=== PATIENT | male | born 1955 | race Caucasian/White ===

== ENCOUNTER 2020-10-17 11:14 | Emergency (ER) | payer MEDICARE ==
[2020-10-17 11:26] VITALS: TEMP 98.1
[2020-10-17 11:47] LABS: Appearance,Urine Clear (Clear); Bilirubin,Urine Negative (Negative); Blood,Urine Negative (Negative); Color,Urine Colorless; Glucose,Urine (UA) Negative (Negative); Ketones,Urine Negative (Negative); Leukocyte Esterase,Urine Negative (Negative); Nitrite,Urine Negative (Negative); Protein,Urine Negative (Negative); Specific Gravity,Urine 1.004 (1.001-1.035); Urobilinogen,Urine <2.0 mg/dL (<2.0)
--- NOTE | 2020-10-17 13:23 | ED ---
Male Urogenital HPI - General Chief complaint: Urogenital Stated complaint: Trouble Urinating Time Seen by Provider: 10/17/20 12:45 Source: patient Mode of arrival: ambulatory Limitations: no limitations - History of Present Illness Initial comments: 65-year-old male with history of penile cancer presents to emergency department with a chief complaint of obstructive urinary symptoms. Patient reports typically he develops these obstructive urinary symptoms due to having multiple penile surgeries. States the shaft of the penis was removed all the way to the base. States whenever he developed these symptoms, he is usually treated with ciprofloxacin and the obstructive urinary symptoms resolved. He reports dysuria and believes he is at the early stages of developing urinary tract infection. Denies any back pain or pain above the bladder. He does feel like he has a full bladder. Reports incomplete emptying and dribbling. States it is very difficult to have a Bellamy catheter inserted due to the amount of pain because of all the scar tissue developed following the surgery. Patient is only requesting the antibiotics because he could not see his urologist on time. - Related Data Home Medications Medication Instructions Recorded Confirmed Acetaminophen-Codeine 300-30mg 1 tab PO QAM 10/17/20 10/17/20 [Tylenol w/codeine #3] Albuterol Nebulized [Ventolin 2.5 mg INHALATION RT-Q6H 10/17/20 10/17/20 Nebulized] Budesonide [Pulmicort] 1 mg INHALATION RT-BID 10/17/20 10/17/20 Ibuprofen [Motrin] 800 mg PO Q8H PRN 10/17/20 10/17/20 Levothyroxine Sodium [Synthroid] 100 mcg PO DAILY 10/17/20 10/17/20 Simvastatin [Zocor] 20 mg PO DAILY 10/17/20 10/17/20 Terazosin HCl 10 mg PO DAILY 10/17/20 10/17/20 amLODIPine [Norvasc] 5 mg PO DAILY 10/17/20 10/17/20 lisinopriL 30 mg PO DAILY 10/17/20 10/17/20 Previous Rx's Medication Instructions Recorded Ciprofloxacin HCl [Cipro] 500 mg PO Q12HR #20 tablet 10/17/20 Allergies Allergy/AdvReac Type Severity Reaction Status Date / Time No Known Allergies Allergy Verified 10/17/20 13:26 Review of Systems ROS Statement: Those systems with pertinent positive or pertinent negative responses have been documented in the HPI. ROS Other: All systems not noted in ROS Statement are negative. Past Medical History Past Medical History: Asthma, Hyperlipidemia, Hypertension Additional Past Medical History / Comment(s): penis cancer,anysm History of Any Multi-Drug Resistant Organisms: None Reported Past Surgical History: Heart Catheterization Past Psychological History: No Psychological Hx Reported Smoking Status: Current every day smoker Past Alcohol Use History: Occasional Past Drug Use History: None Reported General Exam Limitations: no limitations General appearance: alert, in no apparent distress, obese Head exam: Present: atraumatic, normocephalic, normal inspection Eye exam: Present: normal appearance, PERRL, EOMI Pupils: Present: normal accommodation ENT exam: Present: normal exam, normal oropharynx, mucous membranes moist, TM's normal bilaterally Neck exam: Present: normal inspection, full ROM Respiratory exam: Present: normal lung sounds bilaterally. Absent: respiratory distress Cardiovascular Exam: Present: regular rate, normal rhythm, normal heart sounds GI/Abdominal exam: Present: soft. Absent: distended, tenderness (No suprapubic tenderness), guarding, rebound exam: Absent: normal inspection (Orifice at the base of the penis. There is no shaft. No signs of erythema or any pustular drainage that would suggest infection at this time.) Extremities exam: Present: normal inspection, full ROM, normal capillary refill. Absent: tenderness Back exam: Present: normal inspection, full ROM. Absent: tenderness, CVA tenderness (R), CVA tenderness (L) Neurological exam: Present: alert, oriented X3 Psychiatric exam: Present: normal affect, normal mood Skin exam: Present: warm, dry, intact, normal color Course Vital Signs 10/17/20 10/17/20 10/17/20 11:23 13:00 14:00 Temperature 98.1 F Pulse Rate 69 Respiratory 16 18 18 Rate Blood Pressure 143/80 O2 Sat by Pulse 97 Oximetry 10/17/20 14:09 Temperature 98.1 F Pulse Rate 65 Respiratory 18 Rate Blood Pressure 163/96 O2 Sat by Pulse 98 Oximetry Medical Decision Making - Medical Decision Making 65-year-old male presents to the emergency department with a chief complaint of urinary obstruction. On physical examination, patient has a urethral opening at the base of the penis. The penile shaft has been surgically removed. Patient was able to have some urinary output in the ED. Postvoid scan was 50 mL. Every 8 unremarkable. I offered him imaging and laboratory work, he declined. Patient is only requesting the antibiotic which typically resolves his obstructive urinary symptoms. Patient was given ciprofloxacin 500 mg 10 days. He has an appointment with urology in less than one week. Return parameters discussed the patient was understanding and agreeable. Case discussed with - Lab Data Lab Results 10/17/20 Range/Units 11:38 Urine Color Colorless Urine Appearance Clear (Clear) Urine pH 6.0 (5.0-8.0) Ur Specific Sentinel 1.004 (1.001-1.035) Urine Protein Negative (Negative) Urine Glucose (UA) Negative (Negative) Urine Ketones Negative (Negative) Urine Blood Negative (Negative) Urine Nitrite Negative (Negative) Urine Bilirubin Negative (Negative) Urine Urobilinogen <2.0 (<2.0) mg/dL Ur Leukocyte Esterase Negative (Negative) Disposition Clinical Impression: Lower urinary obstructive symptom Disposition: HOME SELF-CARE Condition: Stable Instructions (If sedation given, give patient instructions): Urinary Retention in Men (ED) Additional Instructions: Follow-up with urology. Return to emergency department if symptoms worsen. Prescriptions: Ciprofloxacin HCl [Cipro] 500 mg PO Q12HR #20 tablet Is patient prescribed a controlled substance at d/c from ED?: No Referrals: Nonstaff,Physician [Primary Care Provider] - 1-2 days Time of Disposition: 14:03
[2020-10-17 14:08] VITALS: RESP 18
[2020-10-17 14:09] VITALS: BP 163/96; PULSE 65
== END 2020-10-17 14:11 | disposition home or self-care (01) ==
LOC: EC 11:14
DX: N13.9 Obstructive and reflux uropathy, unspecified (principal); E78.5 Hyperlipidemia, unspecified; F17.200 Nicotine dependence, unspecified, uncomplicated; I10 Essential (primary) hypertension; J45.909 Unspecified asthma, uncomplicated; Z79.1 Long term (current) use of non-steroidal anti-inflammatories (NSAID); Z79.899 Other long term (current) drug therapy
CPT/HCPCS: 51798; 81003; 99283

== ENCOUNTER 2022-06-01 04:16 | Observation (INO) | payer MEDICARE ==
[2022-06-01] MEDS: APIXABAN 5 MG TAB PO SCH ×2 (11:10→21:27)
[2022-06-01] MEDS ORDERED: ACETAMINOPHEN TAB 325 MG TAB PO PRN (13:24)
[2022-06-01] MEDS ORDERED: NALOXONE 0.4 MG/ML 1 ML VIAL IVP PRN (13:24)
[2022-06-01] MEDS ORDERED: HYDROcodone/APAP 5-325MG 1 EACH TAB PO PRN (13:24)
--- NOTE | 2022-06-01 13:29 | P.HPIM ---
History of Present Illness H&P Date: 06/01/22 History of Presenting Illness: Patient is a very pleasant 66-year-old male with a past medical history of chronic atrial fibrillation on anticoagulation with Eliquis, hypertension, hyperlipidemia, COPD and continued nicotine dependence smoking 1-2 packs of c igarettes daily, AAA status post repair and current AAA reportedly measuring 4.5 cm x 4.5 cm per abdominal duplex completed on 05/31/22 at [facility]. Patient reports he follows up outpatient with vascular surgeon, Dr. Ortega, with [facility] and follows with resin mixer, Dr. Delong, through [facility]. Patient denies having a history of coronary artery disease reports that he was told that he had a heart attack but when he was taken to [facility] and they completed the cardiac cath he told him that the elevation in his troponin was because of his COPD and that he had a clean cardiac cath. Patient's last echocardiogram was completed 12/15/20 at [facility] revealing a EF of 60-65% with mild aortic regurgitation. Patient presented to the emergency department today with a chief complaint of chest pressure. Patient reports he awoke this morning and while sitting up on the side of the bed felt some pressure in his chest, reports it was to midsternal chest and felt more like a discomfort and someone was pushing on him. He states he walked to the restroom and that this pain only lasted a couple minutes and resolved on its own so he disregarded it. Patient states he then went out on the porch to smoke a cigarette and again felt the same pressure to his midsternal chest so he went back into the house. Patient reports this pain/pressure again resolved on its own but returned moments later and this is when he knew he needed to go to the emergency department for evaluation. Patient states pain is currently completely subsided. He describes previous pain as a pressure to midsternal chest and denied any radiation of pain. He states the pain was accompanied by palpitations but denies experiencing any headache, lightheadedness, dizziness, shortness of breath, exertional dyspnea, increases or changes in his chronic COPD cough, nausea, vomiting, or experiencing any numbness/tingling/weakness/swelling in his extremities. Patient underwent full evaluation in the emergency department. EKG was completed revealing atrial fibrillation with a slowed ventricular rate at 58 bpm with no noted T-wave or ST abnormalities showing no signs of acute ischemia. CBC unremarkable and troponin was < 0.012. Patient admitted under our services with consultation to cardiology. Patient did have a reported elevated pressure in the emergency department of 175/110. Review of systems: Pertinent positives and negatives as discussed in HPI, a complete review of systems was performed and all other systems are negative. Physical exam: Vital signs reviewed and stable. General: Nontoxic, no distress and appears stated age. Derm: Skin warm and dry, normal coloration for ethnicity. Head: Atraumatic, normocephalic and symmetric. Eyes: EOMs intact, no lid lag, and anicteric sclera Mouth: no lip lesions, mucus membranes moist Cardiovascular: regular rate and rhythm with normal S1S2, systolic murmur, positive posterior tibial pulses bilaterally, and cap refill < 2 seconds. Lungs: Respirations even, regular, and unlabored on room air. Lungs diminished, no rhonchi, no rales, no wheezing, and no accessory muscle usage. Abdominal: soft, nontender to palpation, no guarding, no appreciable organomegaly Ext: ROM intact. No gross muscle atrophy, bilateral lower extremity nonpitting edema, no contractures Neuro: Speech clear, face symmetrical and CN II-XII grossly intact with no noted focal neuro deficits Psych: Alert and oriented to person, place, time, and situation. Appropriate and pleasant affect. Assessment and Plan of Care: Chest pain, rule out acute coronary event Hypertension Hyperlipidemia -Cardiology consult, appreciate further recommendations -Telemetry monitoring -Trend troponins -Cardiac diet, NPO at midnight -Continue cardiac medication regimen with Aspirin, Eliquis, atorvastatin, lisinopril, and amlodipine -Lipid profile with a.m. labs. -Echocardiogram AAA status post repair and current AAA with aneurysmal sac measuring 4.5 cm x 4.5 cm -Patient reports he follows up outpatient with vascular surgeon, Dr. Ortega, with [facility] system -AAA aneurysmal sac reportedly measuring 4.5 cm x 4.5 cm per abdominal duplex completed on 05/31/22 at [facility]. -Patient to continue to follow up outpatient with his vascular surgeon for continued monitoring and management. COPD with continued nicotine dependence -Recommend smoking cessation. -Nicotine patch. -Continue with daily Pulmicort and as needed DuoNeb for shortness of breath and/or wheezing. The patient is admitted with an anticipated less than 2 midnight stay for evaluation of chest pain CODE STATUS: Full code DVT prophylaxis: Pujaquyaa Discussed with: Patient, cardiology, and RN Anticipated discharge date: Within the next [address]: Home A total of 44 minutes was spent on the care of this complex patient more than 50% of the time was spent in counseling and care coordination. Past Medical History Past Medical History: Asthma, Hyperlipidemia, Hypertension Additional Past Medical History / Comment(s): penis cancer,anysm History of Any Multi-Drug Resistant Organisms: None Reported Past Surgical History: Heart Catheterization Past Psychological History: No Psychological Hx Reported Smoking Status: Current every day smoker Past Alcohol Use History: Occasional Past Drug Use History: None Reported Medications and Allergies Home Medications Medication Instructions Recorded Confirmed Type Acetaminophen-Codeine 300-30mg 1 tab PO QAM 10/17/20 10/17/20 History [Tylenol w/codeine #3] Albuterol Nebulized [Ventolin 2.5 mg INHALATION RT-Q6H 10/17/20 10/17/20 History Nebulized] Budesonide [Pulmicort] 1 mg INHALATION RT-BID 10/17/20 10/17/20 History Ciprofloxacin HCl [Cipro] 500 mg PO Q12HR #20 tablet 10/17/20 Rx Ibuprofen [Motrin] 800 mg PO Q8H PRN 10/17/20 10/17/20 History Levothyroxine Sodium [Synthroid] 100 mcg PO DAILY 10/17/20 10/17/20 History Simvastatin [Zocor] 20 mg PO DAILY 10/17/20 10/17/20 History Terazosin HCl 10 mg PO DAILY 10/17/20 10/17/20 History amLODIPine [Norvasc] 5 mg PO DAILY 10/17/20 10/17/20 History lisinopriL 30 mg PO DAILY 10/17/20 10/17/20 History Allergies Allergy/AdvReac Type Severity Reaction Status Date / Time No Known Allergies Allergy Verified 10/17/20 13:26
--- NOTE | 2022-06-01 13:33 | P.CRDCN ---
History of Present Illness Consult date: 06/01/22 Requesting physician: Samm Corona Reason for Consult (text): chest pain Chief complaint: chest pain History of present illness: This is a pleasant 66-year-old gentleman with a past medical history of hypertension, hyperlipidemia, chronic persistent atrial fibrillation anticoagulated on Eliquis, AAA status post repair follows with Dr. Ortega out of [facility] and underwent duplex there yesterday with an aneurysmal area measuring 4.5 cm x 4.5 cm, COPD currently smokes at least one pack per day has been smoking since the age of 11 and prior to that exposed to heavy secondhand smoke. She also has a history of drinking about every other day, consumes 6 alcoholic beverages in a sitting. He follows with Dr. Delong out of [facility]. She had echocardiogram in November 2020 that showed a normal systolic function with mild aortic regurgitation. He has a history of cardiac catheterization about 9 years ago and at that time was told that he had no obstructive CAD. Presented to the emergency department via EMS with complaints of chest discomfort at home. Discomfort occurred 3 times and was brief lasting only a few seconds. Because it occurred 3 times he decided to call EMS. He has been chest pain-free since admission. The pain did not occur with physical activity. EKG on admission showed atrial fibrillation with heart rate of 58 bpm and incomplete right bundle branch block and nonspecific ST-T wave abnormalities and no previous EKG for comparison. Labs show normal renal function and unremarkable CBC. Troponin has been negative 1. Blood pressure has been elevated initially in the 170s over 110 range and after receiving medications was 160s over 80s. He is currently on lisinopril 30 mg by mouth daily and amlodipine 5 mg by mouth daily. He complains of shortness of breath and uses nebulizers regularly at home but his breathing has been stable. His lower extremity edema that in stable. Denies any palpitations, lightheadedness or dizziness. He denies any orthopnea or PND. He has occasional symptoms of reflux and indigestion has history of a hiatal hernia. Denies any hematuria or GI bleeding. Past Medical History Past Medical History: Asthma, Hyperlipidemia, Hypertension Additional Past Medical History / Comment(s): penis cancer,anysm History of Any Multi-Drug Resistant Organisms: None Reported Past Surgical History: Heart Catheterization Past Psychological History: No Psychological Hx Reported Smoking Status: Current every day smoker Past Alcohol Use History: Occasional Past Drug Use History: None Reported Medications and Allergies Home Medications Medication Instructions Recorded Confirmed Type Acetaminophen-Codeine 300-30mg 1 tab PO QAM 10/17/20 10/17/20 History [Tylenol w/codeine #3] Albuterol Nebulized [Ventolin 2.5 mg INHALATION RT-Q6H 10/17/20 10/17/20 History Nebulized] Budesonide [Pulmicort] 1 mg INHALATION RT-BID 10/17/20 10/17/20 History Ciprofloxacin HCl [Cipro] 500 mg PO Q12HR #20 tablet 10/17/20 Rx Ibuprofen [Motrin] 800 mg PO Q8H PRN 10/17/20 10/17/20 History Levothyroxine Sodium [Synthroid] 100 mcg PO DAILY 10/17/20 10/17/20 History Simvastatin [Zocor] 20 mg PO DAILY 10/17/20 10/17/20 History Terazosin HCl 10 mg PO DAILY 10/17/20 10/17/20 History amLODIPine [Norvasc] 5 mg PO DAILY 10/17/20 10/17/20 History lisinopriL 30 mg PO DAILY 10/17/20 10/17/20 History Allergies Allergy/AdvReac Type Severity Reaction Status Date / Time No Known Allergies Allergy Verified 10/17/20 13:26 Physical Exam Vitals: Intake and Output 05/31/22 06/01/22 06/01/22 22:59 06:59 14:59 Other: # Voids 1 PHYSICAL EXAMINATION: This is a 66-year-old gentleman in no apparent distress at the time of my examination. VITAL SIGNS: Reviewed with nursing staff HEENT: Head is atraumatic, normocephalic. Pupils are equal, round. Sclerae anicteric. Conjunctivae are clear. Mucous membranes of the mouth are moist. Neck is supple. There is no elevated jugular venous pressure. No carotid bruit is heard. CHEST EXAMINATION: Diminished to auscultation bilaterally. No wheezes rales or rhonchi. Respirations even and nonlabored. HEART EXAMINATION: Heart irregular rate and rhythm, positive S1 and S2. No S3. No S4. No clicks, rubs or murmurs. ABDOMEN: Soft, nontender. Bowel sounds are heard. No organomegaly noted. EXTREMITIES: 2+ peripheral pulses with evidence of lower extremity edema right greater than left and no calf tenderness noted. NEUROLOGIC EXAMINATION: Patient is awake, alert and oriented x3. Results Current Medications Generic Name Dose Route Start Last Admin Trade Name Uriel PRN Reason Stop Dose Admin Amlodipine Besylate 10 mg 06/01/22 13:30 Amlodipine 5 Mg Tab PO DAILY [facility] Apixaban 5 mg 06/01/22 11:00 06/01/22 11:10 Apixaban 5 Mg Tab PO 5 mg BID [facility] Administration Protocol Aspirin 81 mg 06/02/22 09:00 Aspirin 81 Mg PO DAILY [facility] Atorvastatin Calcium 10 mg 06/02/22 09:00 Atorvastatin 10 Mg Tab PO DAILY [facility] Budesonide 1 mg 06/01/22 20:00 Budesonide 1 Mg/2 Ml Nebu INHALATION RT-BID [facility] Doxazosin Mesylate 8 mg 06/02/22 21:00 Doxazosin 4 Mg Tab PO HS [facility] Hydrochlorothiazide 25 mg 06/01/22 13:30 Hydrochlorothiazide 25 Mg Tab PO DAILY [facility] Levothyroxine Sodium 100 mcg 06/02/22 06:30 Levothyroxine 100 Mcg Tab PO DAILY@0630 [facility] Lisinopril 30 mg 06/02/22 09:00 Lisinopril 10 Mg Tab PO DAILY [facility] Intake and Output 05/31/22 06/01/22 06/01/22 22:59 06:59 14:59 Other: # Voids 1 Assessment and Plan Assessment: #1 symptoms of chest pain, rule out acute coronary syndrome, troponins negative 1, no evidence of acute ischemia on EKG, no prior EKG to compare #2 chronic persistent atrial fibrillation, anticoagulated and rate controlled 3 hypertension, uncontrolled #4 AAA status post repair follows with Dr. Miller for vascular out of [facility] #5 hyperlipidemia #6 nicotine dependence #7 alcohol abuse 8 COPD Plan: From cardiology's perspective we will add hydrochlorothiazide and increase amlodipine to 10 mg daily. We will continue to trend the troponins. We'll obtain a 2-D echo with Doppler study to assess cardiac structure and function. Discussed in detail importance of smoking and alcohol cessation. Further recommendations to follow depending on diagnostic findings and patient's symptoms. Patient will likely be discharged home and follow-up with his primary industrial spray painter. MAGICIAN HELPER note has been reviewed, I agree with a documented findings and plan of care. Patient was seen and examined.
[2022-06-01] MEDS: hydroCHLOROthiazide 25 MG TAB PO SCH (14:07)
[2022-06-01] MEDS: NICOTINE 21MG/24HR PATCH TRANSDERM SCH (14:07)
[2022-06-01] MEDS: amLODIPine 10 MG TAB PO SCH (14:11)
[2022-06-01] MEDS: IPRATROPIUM-ALBUTEROL 3 ML NEB INHALATION PRN ×2 (15:20→18:58)
[2022-06-01 17:38] LABS: ALT 22 U/L (4-49); AST 24 U/L (17-59); African American GFR (CKD) >90 (>60 ml/min/1.73 sqM); Albumin 4.3 g/dL (3.5-5.0); Albumin/Globulin Ratio 2.4; Alkaline Phosphatase 47 U/L (38-126); Anion Gap 9 mmol/L; Blood Urea Nitrogen 14 mg/dL (9-20); Calcium 8.5 mg/dL (8.4-10.2); Carbon Dioxide 25 mmol/L (22-30); Chloride 104 mmol/L (98-107); Globulin 1.8 g/dL; Glucose 84 mg/dL (74-99); Magnesium 1.6 mg/dL (1.6-2.3); Non-African American GFR(CKD) >90 (>60 ml/min/1.73 sqM); Phosphorus 3.4 mg/dL (2.5-4.5); Potassium 3.9 mmol/L (3.5-5.1); Sodium 138 mmol/L (137-145); Total Protein 6.1 g/dL (6.3-8.2)
[2022-06-01 17:39] LABS: Creatine Kinase 96 U/L (55-170); Creatine Kinase MB 1.6 ng/mL (0.0-2.4); Troponin I <0.012 ng/mL (0.000-0.034)
[2022-06-01 17:44] LABS: Basophils % (A) 1 %; Eosinophils # (A) 0.1 k/uL (0-0.7); Eosinophils % (A) 2 %; HCT 43.2 % (39.0-53.0); HGB 14.7 gm/dL (13.0-17.5); Lymphocytes # (A) 1.3 k/uL (1.0-4.8); Lymphocytes % (A) 27 %; MCH 32.4 pg (25.0-35.0); MCHC 33.9 g/dL (31.0-37.0); MCV 95.6 fL (80.0-100.0); Mean Platelet Volume 8.6; Monocytes # (A) 0.4 k/uL (0-1.0); Monocytes % (A) 8 %; Neutrophils # (A) 2.9 k/uL (1.3-7.7); Neutrophils % (A) 61 %; Platelet Count 178 k/uL (150-450); RBC 4.52 m/uL (4.30-5.90); RDW 12.2 % (11.5-15.5); WBC 4.9 k/uL (3.8-10.6)
[2022-06-01] MEDS: BUDESONIDE 1 MG/2 ML NEBU INHALATION SCH (18:58)
[2022-06-01] MEDS: ATORVASTATIN 10 MG TAB PO SCH (21:33)
[2022-06-01] MEDS ORDERED: guaiFENesin SYRUP 100MG/5ML 200 MG/10 ML CUP PO PRN (22:18)
[2022-06-01] MEDS ORDERED: MELATONIN 5 MG TABLET PO SCH (22:30)
[2022-06-01] MEDS: BENZOCAINE/MENTHOL LOZENG 1 EACH LOZENGE MUCOUS MEM PRN (22:39)
[2022-06-02] MEDS: NICOTINE 21MG/24HR PATCH TRANSDERM SCH (02:29)
[2022-06-02] MEDS ORDERED: LEVOTHYROXINE 100 MCG TAB PO SCH (06:30)
[2022-06-02] MEDS: IPRATROPIUM-ALBUTEROL 3 ML NEB INHALATION PRN ×2 (07:24→11:11)
[2022-06-02] MEDS: BUDESONIDE 1 MG/2 ML NEBU INHALATION SCH (07:24)
[2022-06-02] MEDS ORDERED: PANTOPRAZOLE 40 MG TABLET PO SCH (07:30)
[2022-06-02 08:19] VITALS: BP 133/77; RESP 18; TEMP 98.4
[2022-06-02] MEDS: ATORVASTATIN 10 MG TAB PO SCH (08:22)
[2022-06-02] MEDS: APIXABAN 5 MG TAB PO SCH (08:22)
[2022-06-02] MEDS: hydroCHLOROthiazide 25 MG TAB PO SCH (08:22)
[2022-06-02] MEDS: amLODIPine 10 MG TAB PO SCH (08:22)
[2022-06-02] MEDS ORDERED: lisinopriL 10 MG TAB PO SCH (09:00)
[2022-06-02] MEDS ORDERED: ASPIRIN 81 MG PO SCH (09:00)
[2022-06-02] MEDS ORDERED: ATORVASTATIN 10 MG TAB PO SCH (09:00)
[2022-06-02] MEDS ORDERED: amLODIPine 5 MG TAB PO SCH (09:00)
[2022-06-02] MEDS: BENZOCAINE/MENTHOL LOZENG 1 EACH LOZENGE MUCOUS MEM PRN (10:56)
[2022-06-02 11:14] VITALS: PULSE 80
[2022-06-02 11:25] LABS: HCT 48.5 % (39.6-50.0); MCH 30.9 pg (27.0-32.0); MCV 93.6 fL (80.0-97.0); Mean Platelet Volume 10.8 fL (9.5-12.2); NRBC Per 100 WBC 0 /100 WBCS (0.0-0.0); Platelet Count 206 X 10*3/uL (140-440); RBC 5.18 X 10*6/uL (4.40-5.60); RDW 12.1 % (11.5-14.5); WBC 6.31 X 10*3/uL (4.50-10.00)
[2022-06-02 11:48] LABS: ALT 20 U/L (10-49); AST 19 U/L (14-35); African American GFR (CKD) 107.1 (60.0-200.0); Albumin 4.5 g/dL (3.8-4.9); Albumin/Globulin Ratio 2.81 (1.60-3.17); Alkaline Phosphatase 61 U/L (41-126); Blood Urea Nitrogen 7.6 mg/dL (9.0-27.0); Calcium 9.3 mg/dL (8.7-10.3); Carbon Dioxide 26.2 mmol/L (20.0-27.5); Chloride 102 mmol/L (96-109); Chol/HDL Ratio 2.43 Ratio; Globulin 1.6 g/dL (1.6-3.3); Glucose 90 mg/dL (70-110); LDL Cholesterol,Calculated 65.7 mg/dL (0.0-131.0); Magnesium 1.7 mg/dL (1.5-2.4); Non-African American GFR(CKD) 92.4 (60.0-200.0); Potassium 3.9 mmol/L (3.5-5.5); Sodium 139 mmol/L (135-145); Total Protein 6.1 g/dL (6.2-8.2); VLDL Calculation 17.78 mg/dL (5.00-40.00)
--- NOTE | 2022-06-02 12:58 | P.PN ---
Subjective Progress Note Date: 06/02/22 This is a pleasant 66-year-old gentleman with a past medical history of hypertension, hyperlipidemia, chronic persistent atrial fibrillation anticoagulated on Eliquis, AAA status post repair follows with Dr. Ortega out of [facility] and underwent duplex there yesterday with an aneurysmal area measuring 4.5 cm x 4.5 cm, COPD currently smokes at least one pack per day has been smoking since the age of 11 and prior to that exposed to heavy secondhand smoke. She also has a history of drinking about every other day, consumes 6 alcoholic beverages in a sitting. He follows with Dr. Delong out of [facility]. She had echocardiogram in November 2020 that showed a normal systolic function with mild aortic regurgitation. He has a history of cardiac catheterization about 9 years ago and at that time was told that he had no obstructive CAD. Presented to the emergency department via EMS with complaints of chest discomfort at home. Discomfort occurred 3 times and was brief lasting only a few seconds. Because it occurred 3 times he decided to call EMS. He has been chest pain-free since admission. The pain did not occur with physical activity. EKG on admission showed atrial fibrillation with heart rate of 58 bpm and incomplete right bundle branch block and nonspecific ST-T wave abnormalities and no previous EKG for comparison. Labs show normal renal function and unremarkable CBC. Troponin has been negative 1. Blood pressure has been elevated initially in the 170s over 110 range and after receiving medications was 160s over 80s. He is currently on lisinopril 30 mg by mouth daily and aml odipine 5 mg by mouth daily. He complains of shortness of breath and uses nebulizers regularly at home but his breathing has been stable. His lower extremity edema that in stable. 06/02/2022 Upon examination the patient is sitting up in a chair. He is overall feeling better. Blood pressure is better controlled. He's had no further chest discomfort. Troponins have been negative. Objective - Vital Signs Vital signs: Vital Signs Temp 98.4 F 06/02/22 07:00 Pulse 78 06/02/22 07:40 Resp 18 06/02/22 08:00 BP 133/77 06/02/22 07:00 Pulse Ox 94 L 06/02/22 07:00 FiO2 Intake & Output 06/01/22 06/02/22 06/02/22 19:59 06:59 18:59 Intake Total Balance Intake: Oral Other: Voiding Method Toilet # Voids - Exam HEENT: Head is atraumatic, normocephalic. Pupils are equal, round. Sclerae anicteric. Conjunctivae are clear. Mucous membranes of the mouth are moist. Neck is supple. There is no elevated jugular venous pressure. No carotid bruit is heard. CHEST EXAMINATION: Diminished to auscultation bilaterally. No wheezes rales or rhonchi. Respirations even and nonlabored. HEART EXAMINATION: Heart irregular rate and rhythm, positive S1 and S2. No S3. No S4. No clicks, rubs or murmurs. ABDOMEN: Soft, nontender. Bowel sounds are heard. No organomegaly noted. EXTREMITIES: 2+ peripheral pulses with no evidence of peripheral edema and no calf tenderness noted. NEUROLOGIC EXAMINATION: Patient is awake, alert and oriented x3. - Labs CBC & Chem 7: 06/02/22 06:59 11 06:59 Labs: Abnormal Lab Results - Last 24 Hours (Table) 06/01/22 Range/Units 04:30 Total Protein 6.1 L (6.3-8.2) g/dL Assessment and Plan Assessment: #1 symptoms of chest pain, rule out acute coronary syndrome, troponins negative 1, no evidence of acute ischemia on EKG, no prior EKG to compare #2 chronic persistent atrial fibrillation, anticoagulated and rate controlled 3 hypertension, uncontrolled #4 AAA status post repair follows with Dr. Ortega for vascular out of [facility] #5 hyperlipidemia #6 nicotine dependence #7 alcohol abuse 8 COPD Plan: From cardiology's perspective the patient is stable for discharge home. He will follow-up with his primary foam fabricator in the next week or 2. Encourage smoking and alcohol cessation. COMPETITIVE INTELLIGENCE MANAGER note has been reviewed, I agree with a documented findings and plan of care. Patient was seen and examined.
--- NOTE | 2022-06-02 13:20 | P.DS ---
Providers Date of admission: 06/01/22 05:30 Expected date of discharge: 06/02/22 Attending physician: Samm Corona MD Consults: 06/01/22 13:26 Consult Physician Routine Consulting Provider: [facility] Consult Reason/Comments: Chest Pain Do you want consulting provider notified?: Already Contacted 06/01/22 14:29 Consult Physician Routine Consulting Provider: Amber Pitts Consult Reason/Comments: CHEST PAIN Do you want consulting provider notified?: Already Contacted Placement Type Exists?: Yes Primary care physician: Noemí Hammer MD Hospital Course: Discharge Diagnosis: Chest pain, acute coronary event ruled out Hypertensive urgency, hypertension now stable. Amlodipine was increased to 10 mg daily and patient was started on hydrochlorothiazide. Hyperlipidemia. Patient to continue daily medication regimen with atorvastatin 40 mg nightly. AAA status post repair and current AAA with aneurysmal sac measuring 4.5 cm x 4.5 cm. Patient to continue to follow up outpatient with his vascular surgeon, Dr. Ortega, for continued monitoring and management. COPD with continued nicotine dependence. Recommend smoking cessation. Patient to continue with daily Pulmicort and as needed DuoNeb's for shortness of breath and/or wheezing. Patient also prescribed rescue inhaler Ventolin to be used as needed for shortness of breath and/or wheezing. Hospital Course: Patient is a very pleasant 66-year-old male with a past medical history of chronic atrial fibrillation on anticoagulation with Eliquis, hypertension, hyperlipidemia, COPD and continued nicotine dependence smoking 1-2 packs of cigarettes daily, AAA status post repair and current AAA reportedly measuring 4.5 cm x 4.5 cm per abdominal duplex completed on 05/31/22 at [facility] . Patient reports he follows up outpatient with vascular surgeon, Dr. Ortega, with [facility] and follows with mining support worker, Dr. Delong, through [facility]. Patient denies having a history of coronary artery disease reports that he was told that he had a heart attack but when he was taken to [facility] and they completed the cardiac cath he told him that the elevation in his troponin was because of his COPD and that he had a clean cardiac cath. Patient's last echocardiogram was completed 12/15/20 at [facility] revealing a EF of 60-65% with mild aortic regurgitation. Patient presented to the emergency department today with a chief complaint of chest pressure. Patient reports he awoke this morning and while sitting up on the side of the bed felt some pressure in his chest, reports it was to midsternal chest and felt more like a discomfort and someone was pushing on him. He states he walked to the restroom and that this pain only lasted a couple minutes and resolved on its own so he disregarded it. Patient states he then went out on the porch to smoke a cigarette and again felt the same pressure to his midsternal chest so he went back into the house. Patient reports this pain/pressure again resolved on its own but returned moments later and this is when he knew he needed to go to the emergency department for evaluation. Patient states pain is currently completely subsided. He describes previous pain as a pressure to midsternal chest and denied any radiation of pain. He states the pain was accompanied by palpitations but denies experiencing any headache, lightheadedness, dizziness, shortness of breath, exertional dyspnea, increases or changes in his chronic COPD cough, nausea, vomiting, or experiencing any numbness/tingling/weakness/swelling in his extremities. Patient underwent full evaluation in the emergency department. EKG was completed revealing atrial fibrillation with a slowed ventricular rate at 58 bpm with no noted T-wave or ST abnormalities showing no signs of acute ischemia. CBC unremarkable and troponin was < 0.012. Patient admitted under our services with consultation to cardiology. Patient was admitted under services with consultation to cardiology. Adjustments were made to patient's blood pressure regimen. Norvasc increased to 10 mg daily and patient started on hydrochlorothiazide. Troponins were trended overnight all negative at less than 0.0123 draws. Patient had significant improvement in blood pressure with morning BP of 133/77. He has had no further episodes of chest pain/discomfort since arrival to our facility. Cardiology recommending patient follow up outpatient with his primary mining support worker with [facility] with no further inpatient interventions recommended at this time. Patient is medically stable at this time. Patient counseled on importance of smoking cessation and instructed to follow up outpatient with his PCP, mining support worker, and vascular surgeon. Physical exam: Vital signs reviewed and stable. General: Nontoxic, no distress and appears stated age. Derm: Skin warm and dry, normal coloration for ethnicity. Head: Atraumatic, normocephalic and symmetric. Eyes: EOMs intact, no lid lag, and anicteric sclera Mouth: no lip lesions, mucus membranes moist Cardiovascular: regular rate and rhythm with normal S1S2, systolic murmur, positive posterior tibial pulses bilaterally, and cap refill < 2 seconds. Lungs: Respirations even, regular, and unlabored on room air. Lungs diminished, no rhonchi, no rales, no wheezing, and no accessory muscle usage. Abdominal: soft, nontender to palpation, no guarding, no appreciable organomegaly Ext: ROM intact. No gross muscle atrophy, bilateral lower extremity nonpitting edema, no contractures Neuro: Speech clear, face symmetrical and CN II-XII grossly intact with no noted focal neuro deficits Psych: Alert and oriented to person, place, time, and situation. Appropriate and pleasant affect. A total of 33 minutes of time were spent preparing this complex discharge summary. Pt was discharged on 06/02/22 at 1:14 PM. I reviewed the documentation as provided by the HAI above, who is the original author of this note. I agree with the documented assessment and plan, with the following changes: none Patient Condition at Discharge: Stable Plan - Discharge Summary New Discharge Prescriptions: New Albuterol Sulfate [Ventolin HFA] 2 puff INHALATION Q6H PRN #1 each PRN Reason: Shortness Of Breath Or Wheezing hydroCHLOROthiazide [Hydrodiuril] 25 mg PO DAILY 30 Days #60 tab amLODIPine [Norvasc] 10 mg PO DAILY 30 Days #30 tab Continue Levothyroxine Sodium [Synthroid] 100 mcg PO DAILY Budesonide [Pulmicort] 1 mg INHALATION RT-HS lisinopriL [Zestril] 40 mg PO DAILY Omeprazole 20 mg PO DAILY Atorvastatin [Lipitor] 40 mg PO HS Albuterol Inhaler [Ventolin Hfa Inhaler] 2 puff INHALATION RT-Q6H PRN PRN Reason: Shortness Of Breath Acetaminophen-Codeine 300-30mg [Tylenol w/codeine #3] 1 tab PO DAILY Terazosin HCl 10 mg PO HS Mupirocin Calcium 2% Cream [Bactroban 2% Cream] 1 applic TOPICAL BID PRN PRN Reason: Skin Irritation Cranberry Fruit Extract [Cranberry] 500 mg PO DAILY Albuterol Nebulized [Ventolin Nebulized] 2.5 mg INHALATION RT-Q6H PRN PRN Reason: Shortness Of Breath Apixaban [Eliquis] 5 mg PO BID Discontinued amLODIPine [Norvasc] 5 mg PO DAILY Discharge Medication List Acetaminophen-Codeine 300-30mg [Tylenol w/codeine #3] 1 tab PO DAILY 10/17/20 [History] Budesonide [Pulmicort] 1 mg INHALATION RT-HS 10/17/20 [History] Levothyroxine Sodium [Synthroid] 100 mcg PO DAILY 10/17/20 [History] Terazosin HCl 10 mg PO HS 10/17/20 [History] Albuterol Inhaler [Ventolin Hfa Inhaler] 2 puff INHALATION RT-Q6H PRN 06/01/22 [History] Albuterol Nebulized [Ventolin Nebulized] 2.5 mg INHALATION RT-Q6H PRN 06/01/22 [History] Atorvastatin [Lipitor] 40 mg PO HS 06/01/22 [History] Cranberry Fruit Extract [Cranberry] 500 mg PO DAILY 06/01/22 [History] Mupirocin Calcium 2% Cream [Bactroban 2% Cream] 1 applic TOPICAL BID PRN 06/01/22 [History] Omeprazole 20 mg PO DAILY 06/01/22 [History] lisinopriL [Zestril] 40 mg PO DAILY 06/01/22 [History] Albuterol Sulfate [Ventolin HFA] 2 puff INHALATION Q6H PRN #1 each 06/02/22 [Rx] Apixaban [Eliquis] 5 mg PO BID 06/02/22 [History] amLODIPine [Norvasc] 10 mg PO DAILY 30 Days #30 tab 06/02/22 [Rx] hydroCHLOROthiazide [Hydrodiuril] 25 mg PO DAILY 30 Days #60 tab 06/02/22 [Rx] Patient Instructions/Handouts: Chest Pain (DC), Hypertension (DC) Activity/Diet/Wound Care/Special Instructions: Activity: As tolerated. Take breaks as needed. Diet: Heart healthy and carb consistent diet. Avoid salts, or foods with hidden salts such as canned or boxed foods and frozen dinners. Extra salt makes your heart work harder and traps the fluid in your body for longer. Special Instructions: Take all of your medications as directed and remember to keep all of your doctor's appointments and follow-up as needed. It is recommended he follow-up outpatient with your mining support worker, Dr. Robles in one week for follow up and outpatient echocardiogram. Return to ER if experience any further episodes of chest pain. Follow up with Dr. Ortega your vascular surgeon at [facility] for continued monitoring and management of AAA. Recommend smoking cessation. Thank you for allowing us to participate in your care, it was truly a pleasure having you for our patient!!! Discharge Disposition: HOME SELF-CARE
[2022-06-02] MEDS ORDERED: DOXAZOSIN 4 MG TAB PO SCH (21:00)
--- NOTE | 2022-06-03 14:12 | XR ---
EXAM: XR Chest, 1 View CLINICAL HISTORY: Chest pain TECHNIQUE: Frontal view of the chest. COMPARISON: No relevant prior studies available. FINDINGS: Lungs: Unremarkable. No consolidation. Pleural space: Unremarkable. No pneumothorax. Heart: Mild cardiomegaly. Pulmonary vascular congestion. Mediastinum: Unremarkable. Bones/joints: Unremarkable. IMPRESSION: Mild cardiomegaly with pulmonary vascular congestion consistent with congestive heart failure.
== END 2022-06-02 13:20 | disposition home or self-care (01) ==
LOC: EC 04:16 → 6NMEDSUR 05:30
PROVIDERS: ADMIT Internal Medicine; ATTEND Internal Medicine
DX: R07.89 Other chest pain (principal); I16.0 Hypertensive urgency; I71.40 Abdominal aortic aneurysm, without rupture, unspecified; J44.9 Chronic obstructive pulmonary disease, unspecified; E78.5 Hyperlipidemia, unspecified; F17.210 Nicotine dependence, cigarettes, uncomplicated; I45.10 Unspecified right bundle-branch block; I11.9 Hypertensive heart disease without heart failure; F10.10 Alcohol abuse, uncomplicated; I48.19 Other persistent atrial fibrillation; Z79.01 Long term (current) use of anticoagulants; Z86.79 Personal history of other diseases of the circulatory system; Z85.49 Personal history of malignant neoplasm of other male genital organs; Z79.890 Hormone replacement therapy; Z79.899 Other long term (current) drug therapy
CPT/HCPCS: 99285; 94640 ×5; 80061; 80053 ×2; 82550; 82553; 83735 ×2; 84100; 84484; 85025; 85027; 71046; G0378 ×2; S4990 ×2

== ENCOUNTER 2023-02-25 14:04 | Emergency (ER) | payer MEDICARE ==
[2023-02-25 14:34] VITALS: PULSE 86; RESP 20; TEMP 98.3
--- NOTE | 2023-02-25 14:49 | ED ---
Male Urogenital HPI - General Source: patient, RN notes reviewed Mode of arrival: ambulatory Limitations: no limitations <Kelle Mohan - Last Filed: 02/25/23 14:45> <René Garcia - Last Filed: 02/25/23 17:00> - General Chief complaint: Urogenital Stated complaint: Cant Urinate Time Seen by Provider: 02/25/23 14:45 - History of Present Illness Initial comments: This is a 67-year-old male who presents to the emergency department for urinary retention. Patient states that over the last 6 hours, he has been unable to urinate. He has a history of penile cancer requiring penile shaft removal. He has mild abdominal discomfort. He was evaluated here in August of this year for the same problem and was found to have urinary strictures. (Kelle Mohan) This is a 67-year-old male who had penile cancer approximate 10 years ago and comes in today because he has been unable to urinate for the last 6 hours. Patient states that he put a catheter many times in the past. Patient states she supposed be having another surgery so they doesn't continue to have this problem. Patient denies any fever chills per patient states he has a urinary tract infections in the past. Patient states she's been told he said urethral strictures. Patient denies any back pain. Patient denies any kidney dysfunction. Patient states he just started not able to urinate about 6 hours ago and has continued to this moment. (René Garcia) - Related Data Home Medications Medication Instructions Recorded Confirmed Acetaminophen-Codeine 300-30mg 1 tab PO TID PRN 10/17/20 09/05/22 [Tylenol w/codeine #3] Budesonide [Pulmicort] 1 mg INHALATION RT-BID PRN 10/17/20 09/05/22 Levothyroxine Sodium [Synthroid] 100 mcg PO DAILY 10/17/20 09/05/22 Terazosin HCl 10 mg PO HS 10/17/20 09/05/22 Albuterol Inhaler [Ventolin Hfa 2 puff INHALATION RT-Q6H PRN 06/01/22 09/05/22 Inhaler] Albuterol Nebulized [Ventolin 2.5 mg INHALATION RT-Q6H PRN 06/01/22 09/05/22 Nebulized] Atorvastatin [Lipitor] 40 mg PO HS 06/01/22 09/05/22 Cranberry Fruit Extract [Cranberry] 500 mg PO DAILY 06/01/22 09/05/22 Omeprazole 20 mg PO DAILY 06/01/22 09/05/22 lisinopriL [Zestril] 40 mg PO DAILY 06/01/22 09/05/22 Apixaban [Eliquis] 5 mg PO BID 06/02/22 09/05/22 Previous Rx's Medication Instructions Recorded amLODIPine [Norvasc] 10 mg PO DAILY 30 Days #30 tab 06/02/22 Ciprofloxacin HCl [Cipro] 500 mg PO Q12HR #10 tablet 09/05/22 Sulfamethox-Tmp 800-160Mg [Bactrim 1 each PO Q12HR #20 tab 02/25/23 DS 800-160 mg] Allergies Allergy/AdvReac Type Severity Reaction Status Date / Time No Known Allergies Allergy Verified 02/25/23 14:34 Review of Systems ROS Other: All systems not noted in ROS Statement are negative. <Kelle Mohan - Last Filed: 02/25/23 14:45> ROS Other: All systems not noted in ROS Statement are negative. <René Garcia - Last Filed: 02/25/23 17:00> ROS Statement: Those systems with pertinent positive or pertinent negative responses have been documented in the HPI. Past Medical History Past Medical History: Asthma, Hyperlipidemia, Hypertension Additional Past Medical History / Comment(s): penis cancer,aneurysm History of Any Multi-Drug Resistant Organisms: None Reported Past Surgical History: Heart Catheterization Past Psychological History: No Psychological Hx Reported Smoking Status: Current every day smoker Past Alcohol Use History: Occasional Past Drug Use History: None Reported <Kelle Mohan - Last Filed: 02/25/23 14:45> General Exam Limitations: no limitations <Kelle Mohan - Last Filed: 02/25/23 14:45> <René Garcia - Last Filed: 02/25/23 17:00> - General Exam Comments Initial Comments: Visual Physical Exam Vital signs reviewed General: Well-appearing, nontoxic, no acute distress. Head: Normocephalic, atraumatic Eyes: PERRLA, EOMI ENT: Airway patent Chest: Nonlabored breathing Skin: No visual rash, normal skin tone Neuro: Alert and oriented 3 Musculoskeletal: No gross abnormalities (Kelle Mohan) GENERAL Patient is well-developed and well-nourished. Patient is in mild distress. EYES Patient's pupils are equal and round. Extraocular motion is intact SKIN Unremarkable GENITALIA Patient has no penile shaft. NEURO The patient is alert and oriented 3 PYSCH Patient has normal interpersonal interactions. MUSCULOSKELETAL All 4 extremities have full range of motion (René Garcia) Course Vital Signs 02/25/23 14:28 Temperature 98.3 F Pulse Rate 86 Respiratory 20 Rate Blood Pressure 157/89 O2 Sat by Pulse 95 Oximetry Medical Decision Making <Kelle Mohan - Last Filed: 02/25/23 14:45> <René Garcia - Last Filed: 02/25/23 17:00> - Medical Decision Making I performed the QuickNote portion of this chart. Signed Kelle Mohan PA-C. (Kelle Mohan) Was pt. sent in by a medical professional or institution ([facility], EMBEDDED SOFTWARE ARCHITECT, urgent care, hospital, or residential...) When possible be specific @ -No Did you speak to anyone other than the patient for history (EMS, parent, family, police, friend...)? What history was obtained from this source @ -No Did you review nursing and triage notes (agree or disagree)? Why? @ -I reviewed and agree with nursing and triage notes Were old charts reviewed (outside hosp., previous admission, EMS record, old EKG, old radiological studies, urgent care reports/EKG's, residential records)? Report findings @ -No old charts were reviewed Differential Diagnosis (chest pain, altered mental status, abdominal pain women, abdominal pain men, vaginal bleeding, weakness, fever, dyspnea, syncope, headache, dizziness, GI bleed, back pain, seizure, CVA, palpatations, mental health, musculoskeletal)? @ -Urinary retention, urinary tract infection, urethral stricture, this is not all inclusive list EKG interpreted by me (3pts min.). @ -As above X-rays interpreted by me (1pt min.). @ -None done CT interpreted by me (1pt min.). @ -None done U/S interpreted by me (1pt. min.). @ -None done What testing was considered but not performed or refused? (CT, X-rays, U/S, labs)? Why? @ -None What meds were considered but not given or refused? Why? @ -None Did you discuss the management of the patient with other professionals (professionals i.e. , PA, EMBEDDED SOFTWARE ARCHITECT, lab, RT, psych nurse, director social service, dispatcher clerk, teacher, chief commercial officer, casey saw operator)? Give summary @ -No Was smoking cessation discussed for >3mins.? @ -No Was critical care preformed (if so, how long)? @ -No Were there social determinants of health that impacted care today? How? (Homelessness, low income, unemployed, alcoholism, drug addiction, transportation, low edu. Level, literacy, decrease access to med. care, intermediate, rehab)? @ -No Was there de-escalation of care discussed even if they declined (Discuss DNR or withdrawal of care, Hospice)? DNR status @ -No What co-morbidities impacted this encounter? (DM, HTN, Smoking, COPD, CAD, Cancer, CVA, ARF, Chemo, Hep., AIDS, mental health diagnosis, sleep apnea, morbid obesity)? @ -None Was patient admitted / discharged? Hospital course, mention meds given and route, prescriptions, significant lab abnormalities, going to OR and other pertinent info. @ -Patient had a catheter placed and it did drain urine and the patient was feeling much better. Urine showed urinary tract infection patient was given an IM shot of Rocephin and sent home on antibiotics. Undiagnosed new problem with uncertain prognosis? @ -No Drug Therapy requiring intensive monitoring for toxicity (Heparin, Nitro, Insulin, Cardizem)? @ -No Were any procedures done? @ -No Diagnosis/symptom? @ -Urinary retention Acute, or Chronic, or Acute on Chronic? @ -Acute Uncomplicated (without systemic symptoms) or Complicated (systemic symptoms)? @ -Uncomplicated Side effects of treatment? @ -No Exacerbation, Progression, or Severe Exacerbation? @ -No Poses a threat to life or bodily function? How? (Chest pain, USA, CT, pneumonia, PE, COPD, DKA, ARF, appy, cholecystitis, CVA, Diverticulitis, Homicidal, Suicidal, threat to staff... and all critical care pts) @ -No Diagnosis/symptom? @ -Urinary tract infection Acute, or Chronic, or Acute on Chronic? @ -Acute Uncomplicated (without systemic symptoms) or Complicated (systemic symptoms)? @ -Complicated Side effects of treatment? @ -none Exacerbation, Progression, or Severe Exacerbation] @ -no Poses a threat to life or bodily function? @ -no (René Garcia) - Lab Data Lab Results 02/25/23 Range/Units 16:12 Urine Color Light Red Urine Appearance Turbid (Clear) Urine pH 6.0 (5.0-8.0) Ur Specific [place] 1.021 (1.001-1.035) Urine Protein 1+ H (Negative) Urine Glucose (UA) Negative (Negative) Urine Ketones Negative (Negative) Urine Blood Large H (Negative) Urine Nitrite Positive (Negative) Urine Bilirubin Negative (Negative) Urine Urobilinogen 2.0 (<2.0) mg/dL Ur Leukocyte Esterase Large H (Negative) Urine RBC 20 H (0-5) /hpf Urine WBC 100 H (0-5) /hpf Ur Squamous Epith Cells 2 (0-4) /hpf Urine Bacteria Moderate H (None) /hpf Disposition <Kelle Mohan - Last Filed: 02/25/23 14:45> Is patient prescribed a controlled substance at d/c from ED?: No Time of Disposition: 16:59 <René Garcia - Last Filed: 02/25/23 17:00> Clinical Impression: Urinary tract infection, Urinary retention Disposition: HOME SELF-CARE Condition: Good Instructions (If sedation given, give patient instructions): Urinary Tract Infection in Men (ED), Urinary Retention in Men (ED) Prescriptions: Sulfamethox-Tmp 800-160Mg [Bactrim DS 800-160 mg] 1 each PO Q12HR #20 tab Referrals: Huey Hammer MD [REFERRING] - 1-2 days
[2023-02-25] MEDS ORDERED: LIDOCAINE 2% URO-JET JELLY 5 ML KIT URETHRAL ONE (15:27)
[2023-02-25 16:36] LABS: Appearance,Urine Turbid (Clear); Bilirubin,Urine Negative (Negative); Blood,Urine Large (Negative); Color,Urine Light Red; Glucose,Urine (UA) Negative (Negative); Ketones,Urine Negative (Negative); Leukocyte Esterase,Urine Large (Negative); Nitrite,Urine Positive (Negative); Protein,Urine 1+ (Negative); Specific Gravity,Urine 1.021 (1.001-1.035)
[2023-02-25 16:38] LABS: RBC,Urine 20 /hpf (0-5); WBC,Urine 100 /hpf (0-5)
[2023-02-25 16:39] LABS: Bacteria,Urine Moderate /hpf; Squamous Epithelial Cell,Urine 2 /hpf (0-4)
[2023-02-25] MEDS ORDERED: cefTRIAXone 1,000 MG VIAL (IM USE) IM STA (16:53)
[2023-02-25 17:20] VITALS: BP 148/91
== END 2023-02-25 17:20 | disposition home or self-care (01) ==
LOC: EC 14:04
DX: N39.0 Urinary tract infection, site not specified (principal); R33.9 Retention of urine, unspecified; B96.89 Other specified bacterial agents as the cause of diseases classified elsewhere; I10 Essential (primary) hypertension; J45.909 Unspecified asthma, uncomplicated; E78.5 Hyperlipidemia, unspecified; F17.200 Nicotine dependence, unspecified, uncomplicated; Z79.01 Long term (current) use of anticoagulants; Z79.51 Long term (current) use of inhaled steroids; Z79.899 Other long term (current) drug therapy
CPT/HCPCS: 81001; 87086; 87077; 87186; 99283; 96372; 51701; J0696

== ENCOUNTER → 2023-12-12 | Outpatient (CLI) | payer MEDICARE ==
[2023-12-12 10:19] LABS: Basophils # (A) 0.04 X 10*3/uL (0.00-0.10); Basophils % (A) 0.8 %; Eosinophils # (A) 0.15 X 10*3/uL (0.04-0.35); Eosinophils % (A) 3.1 %; HGB 12.3 g/dL (13.0-17.0); Lymphocytes # (A) 0.94 X 10*3/uL (0.90-5.00); Lymphocytes % (A) 19.5 %; MCHC 31.5 g/dL (32.0-37.0); MCV 88.8 FL (80.0-97.0); Mean Platelet Volume 10.2 FL (9.5-12.2); Monocytes # (A) 0.44 X 10*3/uL (0.20-1.00); Monocytes % (A) 9.1 %; NRBC Per 100 WBC 0 X 10*3/uL (0.00-0.01); Neutrophils # (A) 3.23 X 10*3/uL (1.80-7.70); Neutrophils % (A) 67.3 %; Platelet Count 191 X 10*3/uL (140-440); RBC 4.39 X 10*6/uL (4.40-5.60); RDW 14.9 % (11.5-14.5); WBC 4.81 X 10*3/uL (4.50-10.00)
[2023-12-12 10:59] LABS: ALT 6 U/L (10-49); AST 22 U/L (14-35); Albumin 4.5 g/dL (3.8-4.9); Alkaline Phosphatase 59 U/L (41-126); BUN/Creat Ratio 17.86 Ratio (12.00-20.00); Blood Urea Nitrogen 12.5 mg/dL (9.0-27.0); Calcium 9.3 mg/dL (8.7-10.3); Carbon Dioxide 25.5 mmol/L (21.6-31.8); Chloride 106 mmol/L (96-109); Chol/HDL Ratio 1.67 Ratio; Globulin 1.5 g/dL (1.6-3.3); Glucose 82 mg/dL (70-110); LDL Cholesterol,Calculated 50.4 mg/dL (0.0-131.0); Potassium 4.1 mmol/L (3.5-5.5); Sodium 145 mmol/L (135-145); T4, Free (Free Thyroxine) 1.48 ng/dL (0.80-1.80); Total Bilirubin 0.9 mg/dL (0.3-1.2); VLDL Calculation 7.58 mg/dL (5.00-40.00)
== END | disposition home or self-care (01) ==
LOC: LABWHC1 07:03
PROVIDERS: ATTEND Family Medicine
DX: Z12.5 Encounter for screening for malignant neoplasm of prostate (principal); E78.5 Hyperlipidemia, unspecified; E03.9 Hypothyroidism, unspecified; E55.9 Vitamin D deficiency, unspecified
CPT/HCPCS: 84439; 84481; 80061; 80053; 84443; 85025; 82306; 36415; G0103

== ENCOUNTER → 2024-04-01 | Outpatient (CLI) | payer MEDICARE ==
[2024-04-01 15:42] LABS: Basophils # (A) 0.04 X 10*3/uL (0.00-0.10); Basophils % (A) 0.8 %; Eosinophils # (A) 0.12 X 10*3/uL (0.04-0.35); Eosinophils % (A) 2.3 %; HCT 44.6 % (39.6-50.0); HGB 14.1 g/dL (13.0-17.0); Lymphocytes # (A) 0.53 X 10*3/uL (0.90-5.00); Lymphocytes % (A) 10.2 %; MCH 29.6 pg (27.0-32.0); MCHC 31.6 g/dL (32.0-37.0); MCV 93.7 FL (80.0-97.0); Mean Platelet Volume 10.5 FL (9.5-12.2); Monocytes # (A) 0.49 X 10*3/uL (0.20-1.00); Monocytes % (A) 9.4 %; NRBC Per 100 WBC 0 X 10*3/uL (0.00-0.01); Neutrophils # (A) 4.01 X 10*3/uL (1.80-7.70); Neutrophils % (A) 77.1 %; Platelet Count 209 X 10*3/uL (140-440); RBC 4.76 X 10*6/uL (4.40-5.60); RDW 16.5 % (11.5-14.5)
[2024-04-01 17:41] LABS: % Iron Saturation 54.11 (15.00-50.00); Ferritin 40.9 ng/mL (22.0-322.0)
== END | disposition home or self-care (01) ==
LOC: LABWHC1 07:30
PROVIDERS: ATTEND Family Medicine
DX: D64.9 Anemia, unspecified (principal)
CPT/HCPCS: 36415; 82607; 82728; 82747; 83540; 83550; 85025

== ENCOUNTER → 2024-09-21 | Outpatient (CLI) | payer MEDICARE | END | disposition home or self-care (01) | LOC: LABWHC1 08:33 | PROVIDERS: ATTEND Psychiatry & Neurology Neurology | DX: G20.A1 Parkinson's disease without dyskinesia, without mention of fluctuations (principal); G62.9 Polyneuropathy, unspecified; Z79.899 Other long term (current) drug therapy | CPT/HCPCS: 36415; 82306; 82607; 83036; 84165 ==

== ENCOUNTER → 2024-10-08 | Outpatient (CLI) | payer MEDICARE ==
--- NOTE | 2024-10-08 15:58 | MR ---
EXAMINATION TYPE: MR brain wo/w con DATE OF EXAM: 10/08/2024 3:42 PM COMPARISON: None. CLINICAL INDICATION: Male, 69 years old with history of R41.3 AMNESIA G20.A1 PARKINSON'S DIS; Quique CARVAJAL 2 years ago TECHNIQUE: Multi planar, multi sequence imaging was performed through the brain including: T1, T2, In version recovery, susceptibility weighted imaging and gradient echo imaging and Diffusion weighted im aging. The patient was then given intravenous contrast and multi planar, T1 fat-saturation images wer e obtained. IV Contrast: 9ml mL Gadobutrol FINDINGS: Mild cerebral atrophy with proportional dilation of ventricular system. Diffusion-weighted imaging s hows no evidence of restricted diffusion to suggest acute/subacute infarct. Intracranial arterial ashanti w voids are maintained. Midline structures show no abnormality. Scattered foci of high T2 signal inte nsity are seen within the periventricular white matter. The susceptibility weighted images do not rev eal any evidence for micro-hemorrhage. After administration of gadolinium, no abnormal enhancement is seen. There are 2 thin-walled cysts the posterior nasopharynx in the adenoids measuring up to 14 mm. The bone marrow signal is within normal limits. Paranasal sinuses and mastoid air cells: No significant paranasal sinus disease. Visualized orbits: Bilateral aphakia IMPRESSION: 1. No evidence of intracranial mass, acute/subacute infarct, or abnormal enhancement. 2. Nonspecific white matter changes, likely related to small vessel ischemic disease. 3. 2 mucous retention cysts of the adenoids and the posterior nasopharynx [facility], , 10/08/2024 3:56 PM
== END | disposition home or self-care (01) ==
LOC: RADMRIMAIN 14:51
PROVIDERS: ATTEND Psychiatry & Neurology Neurology
DX: G20.A1 Parkinson's disease without dyskinesia, without mention of fluctuations (principal); R41.3 Other amnesia; J34.1 Cyst and mucocele of nose and nasal sinus; R90.82 White matter disease, unspecified
CPT/HCPCS: 70553; A9585

== ENCOUNTER → 2024-11-08 | Outpatient (CLI) | payer MEDICARE ==
[2024-11-08 11:07] LABS: ALT 10 U/L (10-49); AST 23 U/L (14-35); Albumin 4.4 g/dL (3.8-4.9); Albumin/Globulin Ratio 2.75 Ratio (1.60-3.17); Alkaline Phosphatase 60 U/L (41-126); BUN/Creat Ratio 22.56 Ratio (12.00-20.00); Blood Urea Nitrogen 20.3 mg/dL (9.0-27.0); Calcium 9.2 mg/dL (8.7-10.3); Chloride 106 mmol/L (96-109); Globulin 1.6 g/dL (1.6-3.3); Glucose 106 mg/dL (70-110); Potassium 4.1 mmol/L (3.5-5.5); Sodium 144 mmol/L (135-145); T4, Free (Free Thyroxine) 1.52 ng/dL (0.80-1.80); Total Bilirubin 0.7 mg/dL (0.3-1.2)
[2024-11-08 15:27] LABS: Basophils # (A) 0.05 X 10*3/uL (0.00-0.10); Basophils % (A) 0.9 %; Eosinophils % (A) 1.8 %; HCT 44.6 % (39.6-50.0); HGB 14.1 g/dL (13.0-17.0); Immature Grans, Automated 0 %; Lymphocytes # (A) 1.24 X 10*3/uL (0.90-5.00); Lymphocytes % (A) 22.5 %; MCH 30.9 pg (27.0-32.0); MCHC 31.6 g/dL (32.0-37.0); MCV 97.8 FL (80.0-97.0); Mean Platelet Volume 10.7 FL (9.5-12.2); Monocytes # (A) 0.43 X 10*3/uL (0.20-1.00); Monocytes % (A) 7.8 %; NRBC Per 100 WBC 0 X 10*3/uL (0.00-0.01); Neutrophils # (A) 3.68 X 10*3/uL (1.80-7.70); Platelet Count 195 X 10*3/uL (140-440); RBC 4.56 X 10*6/uL (4.40-5.60); RDW 14.2 % (11.5-14.5)
== END | disposition home or self-care (01) ==
LOC: LABWHC1 07:56
PROVIDERS: ATTEND Family Medicine
DX: I10 Essential (primary) hypertension (principal); E03.9 Hypothyroidism, unspecified
CPT/HCPCS: 36415; 80053; 84439; 84443; 84480; 85025

== ENCOUNTER → 2025-01-11 | Outpatient (CLI) | payer MEDICARE ==
--- NOTE | 2025-01-13 09:37 | CTL ---
EXAMINATION TYPE: CT Low Dose Lung DATE OF EXAM: 01/11/2025 9:42 AM COMPARISON: None. SCREENING VISIT: r CT DIAGNOSTIC QUALITY: Satisfactory CLINICAL INDICATION: Male, 69 years old with history of Z12.2 LUNG CANCER SCRN, F17.210, Current smok er, 1 ppd x 56 years, Lung cancer screening, History of tobacco use. TECHNIQUE: Low dose computed tomography scan was performed through the chest at 1 mm thick sections a nd reconstructed images in the coronal plane at 1 mm thick sections. Contrast used: mL of , (none if empty) Oral contrast used: (none if empty) CT DLP: 97.2 mGycm, Automated exposure control for dose reduction was used. CT CTDI: 2.4 mGy, Automated exposure control for dose reduction was used. FINDINGS: LUNG NODULES: None. LUNGS: COPD: Severity: None Fibrosis: Severity: None Lymph nodes: None Other findings: None RIGHT PLEURAL SPACE: Effusion: None Calcification: None Thickening: None Pneumothorax: None LEFT PLEURAL SPACE: Effusion: None Calcification: None Thickening: None Pneumothorax: None HEART: Other: Ascending thoracic aorta at the level the main pulmonary artery measures 4.6 cm. The main pul monary artery at the bifurcation measures 3.3 cm. Heart Size: Normal Coronary calcification: No significant coronary artery calcifications. Pericardial effusion: None OTHER FINDINGS: Upper abdomen: Normal Bony thorax: Normal Supraclavicular region: Normal IMPRESSION: No suspicious changes for primary or metastatic neoplasm 2. Ascending thoracic aortic aneurysm FOLLOW UP CT CHEST RECOMMENDATION: Follow-up low-dose CT chest one year CT LUNG RAD: Lung-Rad 1 Negative Estimated modifier: Ascending thoracic aortic aneurysm 4.6 cm. [facility], , 01/13/2025 9:34 AM
== END | disposition home or self-care (01) ==
LOC: RADCTMAIN 09:11
PROVIDERS: ATTEND Family Medicine
DX: Z12.2 Encounter for screening for malignant neoplasm of respiratory organs (principal); F17.210 Nicotine dependence, cigarettes, uncomplicated; I71.21 Aneurysm of the ascending aorta, without rupture
CPT/HCPCS: 71271